=== PATIENT | female | born 1990 | race Two or more races ===

== ENCOUNTER 2019-06-30 14:52 | Inpatient (IN) | payer OTHER ==
[~2019-06-30] VITALS: Ht 182.9 cm; Wt 121.6 kg
[2019-07-09] MEDS ORDERED: PRENATAL TABLE1 EACH PO (08:49)
[2019-07-09] MEDS ORDERED: CALCIUM500 M1 PO (08:50)
[2019-07-09] MEDS ORDERED: MULTIVITAMINS1 EAC9 PO (08:55)
[2019-07-09] MEDS ORDERED: ADRENOID CAPSU1 EACH PO (08:55)
== END 2019-07-11 13:16 | disposition home or self-care (01) | DRG 798 ==
LOC: LDR 07-09 07:03 → OB/GYN 07-09 07:03
PROVIDERS: ADMIT Obstetrics & Gynecology Maternal & Fetal Medicine
PROC: 0UL70ZZ Occlusion of Bilateral Fallopian Tubes, Open Approach (ICD-10-PCS; 2019-07-09)
PROC: 10907ZC Drainage of Amniotic Fluid, Therapeutic from Products of Conception, Via Natural or Artificial Opening (ICD-10-PCS; 2019-07-09)
PROC: 4A1HXCZ Monitoring of Products of Conception, Cardiac Rate, External Approach (ICD-10-PCS; 2019-07-09)
PROC: 10E0XZZ Delivery of Products of Conception, External Approach (ICD-10-PCS; principal; 2019-07-09 18:00)
DX: O80 Encounter for full-term uncomplicated delivery (principal); Z37.0 Single live birth; Z3A.38 38 weeks gestation of pregnancy; Z30.2 Encounter for sterilization; Z22.330 Carrier of Group B streptococcus

== ENCOUNTER 2019-07-02 14:35 | Outpatient (CLI) | payer OTHER | END 2019-07-02 17:32 | disposition home or self-care (01) | LOC: NST 14:35 | DX: Z34.83 Encounter for supervision of other normal pregnancy, third trimester (principal) ==